=== PATIENT | male | born 1980 | race Caucasian/White ===

== ENCOUNTER → 2024-07-27 07:48 | Outpatient (REF) | payer BC, SELFPAY | LOC: HWRAD 07:48 | PROVIDERS: ATTENDING PHYSICIAN Family Medicine; REFERRING PHYSICIAN Student in an Organized Health Care Education/Training Program | DX: R63.4 Abnormal weight loss (principal); R10.9 Unspecified abdominal pain; K52.9 Noninfective gastroenteritis and colitis, unspecified | CPT/HCPCS: 74178; Q9967 ==

== ENCOUNTER → 2024-07-31 06:36 | Day surgery (SDC) | payer BC, SELFPAY | LOC: GI 06:36 | PROVIDERS: ATTENDING PHYSICIAN Student in an Organized Health Care Education/Training Program | DX: R63.4 Abnormal weight loss (principal); R10.30 Lower abdominal pain, unspecified; R19.4 Change in bowel habit; T18.4XXA Foreign body in colon, initial encounter; W44.8XXA Other foreign body entering into or through a natural orifice, initial encounter; K92.2 Gastrointestinal hemorrhage, unspecified; K20.90 Esophagitis, unspecified without bleeding | CPT/HCPCS: 45378; 43239; 88305; 88342 ==

== ENCOUNTER 2025-04-25 11:30 | Emergency (ER) | payer BC, SELFPAY ==
[2025-04-25 11:34] VITALS: BP 120/73
--- NOTE | 2025-04-25 13:43 | ED.GENMED ---
History of Present Illness
General
Chief Complaint: Dizziness
Source: patient
Exam Limitations: none
Time Seen by Provider: 04/25/25 13:14
History of Present Illness
History of Present Illness:
44yoM with a history of hypertension and migraines presenting for evaluation of dizziness. Patient was feeling slightly 'off' yesterday. He woke up this morning feeling lightheaded with diffuse body aches. 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 He had a headache earlier in the day which resolved after taking Nurtec. He denies any chest pain, shortness of breath, vomiting, diarrhea, fevers, URI symptoms, dysuria, rash, tick bites. No syncopal
episodes. He denies any recent illness or new medications.
Past History
Past History
ED Past Medical History: None
Social History
Employment: Employed
Phy Exam
General Physical Exam
General Presentation: well appearing and no apparent distress
General age: appears stated age
General Skin: warm and dry
General Habitus: normal
General Mental: alert
ENT Exam
ENT Exam: TM's normal, pharynx normal, neck supple and normocephalic
Additional ENT: No meningismus
Cardiovascular Exam
Cardiovascular Exam: regular rate/rhythm and no murmur
Pulmonary Exam
Pulmonary Exam: lungs clear, no respiratory distress, no rales, no crackles, no rhonchi and no wheezing
Neurological Exam
Neurological Exam: alert
[place] Coma Scale
Eye Opening: Spontaneous
Verbal Response: Oriented
Motor Response: Obeys Commands
GCS Total Score: 15
Skin Exam
Skin Exam: normal color and warm/dry
Psychiatric Exam
Psychiatric Exam: normal mood/affect
Course
Orders/Labs/Results
Orders:
Orders
04/25/25 11:36
ECG [Electrocardiogram (*1)] Urgent
Reason for Study: Vertigo / Dizzy
EKG- Treatment ONCE
04/25/25 14:08
COVID-19 Antigen Urgent
Source: Nasal Swab
Complete Blood Count/With Diff Urgent
Comprehensive Metabolic Panel Urgent
Magnesium Urgent
Troponin I Urgent
Influenza A+B Rapid Molecular Urgent
JEWELS Source: Nasal Swab
Specimen Description:
04/25/25 14:15
0.9% Sodium Chloride 1000 ml [Nss] 1,000 ml IV BOLUS
04/25/25 15:28
Ketorolac [Toradol] 30 mg IV NOW STA
Abnormal Lab Results
04/25/25
14:08
WBC 13.5 H 10^3/uL
(4.8-10.8)
RBC 4.46 L 10^6/uL
(4.70-6.10)
Absolute Neuts (auto) 11.2 H 10^3/uL
(1.4-6.5)
Absolute Monos (auto) 0.8 H 10^3/uL
(0.1-0.6)
Neutrophils % 83.3 H %
(42.2-75.2)
Lymphocytes % 9.2 L %
(20.5-51.1)
Sodium 133 L mmol/L
(135-145)
Glucose 116 H mg/dl
(70-99)
Total Bilirubin 1.7 H mg/dl
(0.2-1.3)
04/25/25 14:08
04/25/25 14:08
Vital Signs
Initial and Last Documented VS:
Initial Vital Signs
Temp Pulse Resp BP Pulse Ox
98.2 F 103 18 120/73 96
04/25/25 11:34 04/25/25 11:34 04/25/25 11:34 04/25/25 11:34 04/25/25 11:34
Last Documented Vital Signs
Temp Pulse Resp BP Pulse Ox
98.2 F 94 20 128/72 99
04/25/25 11:34 04/25/25 14:19 04/25/25 14:19 04/25/25 14:19 04/25/25 14:19
MDM/Problems Addressed
Differential Diagnosis Includes:
44yoM here with lightheadedness and body aches that started today. Denies fevers. No CP/SOB. VSS. He is well appearing in no distress and exam is reassuring. Differential diagnosis includes but is not limited to: viral illness, heat exhaustion,
dehydration, less likely cardiac
Initial ED plan: Triage EKG shows NSR without ischemic changes. Will check cardiac labs, magnesium, and COVID/flu testing. IV fluid bolus.
*Pulse Oximetry
SaO2: 96
Oxygen Mode of Delivery: Room air
Patient hypoxic: no (96%)
*EKG
Interpreted by ED Provider?: Yes
EKG Intrepretation Date: 04/25/25
Heart Rate: 91
Rate: normal
Rhythm: sinus
[place]: normal axis
Interval: normal interval
QRS Pattern: normal QRS
Ischemia: no ischemia
*Critical Care Note
Total Time (30-74mins, 75-104mins- exclusive of procedures): Not Applicable
Update Note
Update Note:
Labs reveal a WBC of 13 which is nonspecific. Remainder of labs overall unremarkable including normal renal function. Viral testing negative. Vitals stable throughout ED stay. No indication for hospitalization. Unclear etiology of symptoms, possible
viral illness. Supportive care discussed and advised close f/u with PCP. ED return precautions reviewed and patient discharged in stable condition.
ED Attending Note
-
Portions of this chart may have been created with voice recognition software.� Occasional wrong word or��sound alike� substitutions may have occurred due to the inherent limitations of voice recognition software.
Discharge Plan
Departure
Patient Disposition: Home (Routine Discharge)
Date of Disposition: 04/25/25
Time of Disposition: 15:27
Patient with high blood pressure during this ER visit?: No
Discharge Problem:
Lightheadedness, Myalgia
Instructions: Dizziness
Referrals:
Sherly Mccurdy DO [Family Provider, Family Practice]
Activity Restrictions/Additional Instructions:
Drink plenty of fluids and stay hydrated. Take Tylenol and ibuprofen for pain.
Please follow-up with your family doctor in the next 2 to 3 days. Return to the ER with any new or worsening symptoms.
Interventions
Interventions:
*Risk Screen - Suicide Last Done: 04/25/25 11:34
*General Assessment Last Done: 04/25/25 13:20
*Neglect/Abuse Screening Last Done: 04/25/25 11:34
ED- Neurological Assessment Last Done: 04/25/25 13:20
ED- Cardiac Assessment Last Done: 04/25/25 13:21
ED Swallowing Screen Last Done: 04/25/25 13:20
Discharge Date and Time
Print Language: ZAMBIAN
[2025-04-25 14:19] VITALS: BP 128/72
[2025-04-25 14:24] LABS: Hematocrit 39.1 % (39.0-52.0); Hemoglobin 13.6 g/dL (13.0-18.0); Mean Corp Hgb Conc. 34.8 g/dL (33.0-37.0); Mean Corpuscular Volume 87.7 fL (80.0-94.0); Nucleated Red Blood Cells % 0 % (-); Platelet Count 217 10^3/uL (130-400); Red Cell Dist. Width 12.1 % (11.5-14.5)
[2025-04-25] MEDS: NSS 1000 IV (14:38)
[2025-04-25 14:42] LABS: COVID-19 Antigen Negative (Negative)
[2025-04-25 14:43] LABS: ALT (SGPT) 22 U/L (0-50); AST (SGOT) 23 U/L (17-59); Albumin 4.5 g/dl (3.5-5.0); Alkaline Phosphatase 41 U/L (38-126); Blood Urea Nitrogen 20 mg/dl (9-20); Calcium 9.4 mg/dl (8.4-10.2); Carbon Dioxide 27 mmol/L (22-30); Chloride 100 mmol/L (98-107); Glucose 116 mg/dl (70-99); Magnesium 1.8 mg/dl (1.6-2.3); Potassium 4.7 mmol/L (3.5-5.1); Sodium 133 mmol/L (135-145); Total Protein 6.8 g/dl (6.3-8.2); eGFR > 60.00
[2025-04-25 14:54] LABS: Troponin I < 0.012 ng/ml
[2025-04-25] MEDS: TORADOL 30 MG IV (15:43)
== END 2025-04-25 18:26 | disposition home or self-care (01) ==
LOC: EMR 11:30
PROVIDERS: Physician Assistant; EMERGENCY PHYSICIAN Emergency Medicine; FAMILY PHYSICIAN Family Medicine
DX: R42 Dizziness and giddiness (principal); M79.10 Myalgia, unspecified site; I10 Essential (primary) hypertension
CPT/HCPCS: 99283; 96374; 96361; 80053; 83735; 84484; 85025; 87502; 87811; 93005